=== PATIENT | female | born 1940 | race Hispanic/Latino ===

== ENCOUNTER 2018-02-01 07:35 | Day surgery (SDC) | payer OTHER ==
[~2018-02-01] VITALS: Ht 152.4 cm; Wt 61.8 kg
[~2018-02-01 07:35] MED LIST: SODIUM CHLORIDE 0.9% 1000ML 1,000 ML IV ONE
[2018-02-01 08:14] VITALS: BP 149/79
[2018-02-01] MEDS ORDERED: ATOR20TA65 PO (08:40)
[2018-02-01] MEDS ORDERED: CALCIUM (08:40)
[2018-02-01] MEDS ORDERED: LOSA1TAB54 PO (08:40)
[2018-02-01] MEDS ORDERED: VITAMIN D3 (08:40)
[2018-02-01] MEDS ORDERED: CLON0.1T PO (08:40)
[2018-02-01] MEDS ORDERED: AMLO10TA2 PO (08:40)
[2018-02-01] MEDS ORDERED: METF850T2 PO (08:40)
[2018-02-01] MEDS ORDERED: PROPOFOL 10 MG/ML 20ML VIAL IV ONE ×2 (09:55)
[2018-02-01 10:06] VITALS: BP 86/49
== END 2018-02-01 10:40 | disposition home or self-care (01) ==
LOC: DAH 07:35 → ENDO 07:35
PROVIDERS: ATTEND Internal Medicine Gastroenterology
DX: Z09 Encounter for follow-up examination after completed treatment for conditions other than malignant neoplasm (principal); Z86.010 Personal history of colon polyps; I10 Essential (primary) hypertension; E78.5 Hyperlipidemia, unspecified; E11.9 Type 2 diabetes mellitus without complications; Z83.3 Family history of diabetes mellitus; Z79.84 Long term (current) use of oral hypoglycemic drugs; Z79.899 Other long term (current) drug therapy; Z68.27 Body mass index [BMI] 27.0-27.9, adult; D12.5 Benign neoplasm of sigmoid colon; K57.30 Diverticulosis of large intestine without perforation or abscess without bleeding
CPT/HCPCS: 45385; 82948 ×2; 88305; 93005; A4606; A4649; J2704 ×2; J7030

== ENCOUNTER → 2018-11-15 | Outpatient (CLI) | payer OTHER ==
[~2018-11-15] MED LIST changes: +AMLO10TA7 PO; +ATOR20TA65 PO; +CALCIUM; +CLON0.1T PO; +LOSA1TAB54 PO; +METF-445 PO; -SODIUM CHLORIDE 0.9% 1000ML 1,000 ML IV ONE; +VITAMIN D3
== END | disposition home or self-care (01) ==
LOC: RAH 13:37
PROVIDERS: ATTEND Internal Medicine
DX: M19.072 Primary osteoarthritis, left ankle and foot (principal); M77.32 Calcaneal spur, left foot
CPT/HCPCS: 73610; 73630

== ENCOUNTER → 2019-03-24 | Outpatient (CLI) | payer OTHER | END | disposition home or self-care (01) | LOC: RAH 14:51 | PROVIDERS: ATTEND Internal Medicine | DX: M51.36 Other intervertebral disc degeneration, lumbar region (principal); M99.13 Subluxation complex (vertebral) of lumbar region; Z90.49 Acquired absence of other specified parts of digestive tract | CPT/HCPCS: 72100 ==